=== PATIENT | male | born 2000 | race Caucasian/White ===

== ENCOUNTER → 2022-03-11 | Emergency (ER) | payer OTHER ==
[~2022-03-11] VITALS: Ht 185.4 cm; Wt 87.8 kg
[~2022-03-11] MED LIST: KINERET SQ; XARELTO10 MG
== END | disposition home or self-care (01) ==
LOC: ER 11:23
DX: M25.552 Pain in left hip (principal); Z88.5 Allergy status to narcotic agent; Z87.440 Personal history of urinary (tract) infections